=== PATIENT | female | born 2000 | race Asian ===

== ENCOUNTER 2019-04-21 14:52 | Emergency (ER) | payer OTHER ==
[~2019-04-21] VITALS: Ht 165.1 cm; Wt 72.7 kg
[2019-04-21] MEDS ORDERED: [UNRECOGNIZED DRUG - CODE] TP (15:02)
[2019-04-21] MEDS ORDERED: PRAMOXINE HCL/BENZYL ALCOHOL 1% 35 GM GEL TP ONE (16:00)
[2019-04-21] MEDS ORDERED: FAMOTIDINE 20 MG TABLET PO ONE (16:00)
[2019-04-21] MEDS ORDERED: DEXAMETHASONE 4 MG TABLET PO ONE (16:00)
[2019-04-21] MEDS ORDERED: DiphenhydrAMINE HCL 25 MG CAPSULE PO ONE (16:00)
[2019-04-21 18:00] VITALS: BP 122/72
== END 2019-04-21 18:20 | disposition home or self-care (01) ==
LOC: EMS 14:52
DX: L50.9 Urticaria, unspecified (principal)
CPT/HCPCS: 99284; J8540

== ENCOUNTER → 2019-05-30 | Outpatient (CLI) | payer OTHER ==
[~2019-05-30] MED LIST: [UNRECOGNIZED DRUG - CODE] TP
[2019-05-30 17:11] LABS: APPEARANCE,URINE CLOUDY (CLEAR); BILIRUBIN,URINE NEGATIVE (NEGATIVE); GLUCOSE, URINE (UA) NEGATIVE (NEGATIVE); KETONES,URINE NEGATIVE (NEGATIVE); LEUKOCYTE ESTERASE ,URINE MODERATE (NEGATIVE); NITRATE,URINE NEGATIVE (NEGATIVE); OCCULT BLOOD,URINE NEGATIVE (NEGATIVE); PH,URINE 5.5 (5.0-8.0); PROTEIN,URINE NEGATIVE (NEGATIVE); UROBILINOGEN,URINE 0.2 mg/dL (<=1.0)
[2019-05-30 17:26] LABS: WBC,URINE 26-50 /HPF (0-5)
[2019-05-30 17:27] LABS: BACTERIA,URINE Moderate /HPF (None Seen); RBC,URINE None Seen /HPF (0-2); SQUAMOUS EPITHELIAL CELL,UR Moderate /LPF (None Seen)
== END | disposition home or self-care (01) ==
LOC: PUC 16:31
DX: N39.0 Urinary tract infection, site not specified (principal)
CPT/HCPCS: 87086